=== PATIENT | male | born 1985 | race Two or more races ===

== ENCOUNTER 2021-11-14 16:39 | Emergency (ER) | payer OTHER ==
[~2021-11-14] VITALS: Ht 188 cm; Wt 225.0 kg
[2021-11-14 19:40] VITALS: BP 130/72
== END 2021-11-14 20:07 | disposition home or self-care (01) ==
LOC: ER 16:39
DX: M79.604 Pain in right leg (principal)
CPT/HCPCS: 93971

== ENCOUNTER 2022-11-14 11:07 | Emergency (ER) | payer OTHER ==
[~2022-11-14] VITALS: Ht 188 cm; Wt 80.0 kg
[2022-11-14 11:42] LABS: Basophils # (auto) 0 10 ^3/uL (0-0.2); Basophils % (auto) 0.3 % (0.0-2.0); Eosinophils # (auto) 0 10 ^3/uL (0-0.8); Eosinophils % (auto) 0.4 % (0.0-7.0); Hematocrit 46.9 % (41.0-53.0); Hemoglobin 15.9 g/dL (13.5-17.5); Mean Corpuscular Hemoglobin 31.7 pg (28.0-32.0); Mean Corpuscular Hgb Conc. 33.9 g/dL (32.0-36.0); Mean Corpuscular Volume 93.4 fL (80.0-100.0); Monocytes # (auto) 0.6 10 ^3/uL (0-1.3); Monocytes % (auto) 6.5 % (0.0-12.0); Neutrophils # (auto) 5.9 10 ^3/uL (1.6-8.6); Neutrophils % (auto) 61.8 % (37.0-80.0); Nucleated Red Blood Cells % 0.1 %; Red Blood Cells 5.02 10^6/uL (4.5-5.90); Red Cell Distribution Width 13.8 % (11.8-14.3); White Blood Cell 9.6 10^3/uL (4.4-10.8)
[2022-11-14 11:56] LABS: Albumin 4.2 g/dL (3.4-5.0); Calcium 8.8 mg/dL (8.5-10.1); Potassium 3.7 mmol/L (3.5-5.1)
[2022-11-14 12:00] LABS: BUN/Creatinine Ratio 13.8 (10.0-20.0); Bilirubin, Total 0.5 mg/dL (0.2-1.0); Total Protein 7.5 g/dL (6.4-8.2)
[2022-11-14] MEDS ORDERED: ASPirin 81 mg TAB PO ONE (12:00)
[2022-11-14] MEDS ORDERED: SODIUM CHLORIDE 0.9% 1,000 ML IVB ONE (12:00)
[2022-11-14] MEDS ORDERED: PANTOPRAZOLE 40 MG/10 ML VIAL INJ IV ONE (12:30)
[2022-11-14 13:16] LABS: Amphetamine Screen, Urine NEGATIVE (NEGATIVE); Barbiturate Scree,Urine NEGATIVE (NEGATIVE); Benzodiazephine Screen, Urine NEGATIVE (NEGATIVE); Cannabinoid Screen, Urine NEGATIVE (NEGATIVE); Cocaine Screen, Urine NEGATIVE (NEGATIVE); Opiate Scree,Urine NEGATIVE (NEGATIVE); Phencyclidine Screen, Urine NEGATIVE (NEGATIVE)
[2022-11-14] MEDS ORDERED: METR-344 PO (15:45)
[2022-11-14 16:08] VITALS: BP 144/80; PULSE 91; RESP 18; TEMP 97.9; O2SAT 99
== END 2022-11-14 16:12 | disposition home or self-care (01) ==
LOC: ER 11:07
DX: R00.2 Palpitations (principal)
CPT/HCPCS: 36415; 71045; 74176; 80053; 80307; 84484; 85025; 85379; 93005; 96361; 96374; 99285; C9113; J7030

== ENCOUNTER 2023-03-20 04:57 | Emergency (ER) | payer OTHER ==
[~2023-03-20] VITALS: Ht 188 cm; Wt 100.0 kg
[~2023-03-20 04:57] MED LIST: METR-344 PO
[2023-03-20 05:19] LABS: Basophils # (auto) 0.1 10 ^3/uL (0-0.2); Basophils % (auto) 0.5 % (0.0-2.0); Eosinophils # (auto) 0.2 10 ^3/uL (0-0.8); Eosinophils % (auto) 1.9 % (0.0-7.0); Hematocrit 46.9 % (41.0-53.0); Hemoglobin 15.9 g/dL (13.5-17.5); Lymphocytes # (auto) 4.2 10 ^3/uL (0.4-5.4); Lymphocytes % (auto) 38.2 % (10.0-50.0); Mean Corpuscular Hemoglobin 31.6 pg (28.0-32.0); Mean Corpuscular Hgb Conc. 33.8 g/dL (32.0-36.0); Mean Corpuscular Volume 93.4 fL (80.0-100.0); Monocytes # (auto) 1.1 10 ^3/uL (0-1.3); Monocytes % (auto) 9.9 % (0.0-12.0); Neutrophils # (auto) 5.4 10 ^3/uL (1.6-8.6); Neutrophils % (auto) 49.5 % (37.0-80.0); Nucleated Red Blood Cells % 0.1 %; Red Blood Cells 5.02 10^6/uL (4.5-5.90); Red Cell Distribution Width 13.1 % (11.8-14.3); White Blood Cell 10.9 10^3/uL (4.4-10.8)
[2023-03-20 05:33] LABS: Alanine Aminotransferase 28 U/L (7-40); Albumin 4.8 g/dL (3.2-4.8); Alkaline Phosphatase 81 U/L (46-116); Anion Gap 6 (5-15); Aspartate Aminotransferase 19 U/L (13-40); BUN/Creatinine Ratio 10.4 (10.0-20.0); Blood Urea Nitrogen 10 mg/dL (9-23); Calcium 9.5 mg/dL (8.7-10.4); Carbon Dioxide 27 mmol/L (20-30); Chloride 103 mmol/L (98-107); Glucose 113 mg/dL (74-106); Potassium 3.3 mmol/L (3.5-5.1); Sodium 136 mmol/L (136-145)
[2023-03-20 05:34] LABS: Total Protein 7.5 g/dL (5.7-8.2)
[2023-03-20 05:40] LABS: Partial Thromboplastin Time 34.6 SEC (24.5-34.5)
[2023-03-20 05:51] LABS: INR 1.04 (0.9-1.15); Prothrombin Time 10.9 sec (9.3-11.8)
[2023-03-20] MEDS ORDERED: ATEN-60 PO (07:28)
[2023-03-20] MEDS ORDERED: METO-281 PO (07:29)
[2023-03-20] MEDS ORDERED: POTASSIUM EFFERVESENT TAB 25 MEQ PO ONE (07:30)
[2023-03-20 07:46] VITALS: BP 120/67; PULSE 61; RESP 17; TEMP 98.4; O2SAT 99
== END 2023-03-20 09:44 | disposition home or self-care (01) ==
LOC: ER 04:57
DX: R07.89 Other chest pain (principal); R00.2 Palpitations; E87.6 Hypokalemia; K21.9 Gastro-esophageal reflux disease without esophagitis; Z79.899 Other long term (current) drug therapy
CPT/HCPCS: 36415; 71045; 80053; 83735; 83880; 84484; 85025; 85610; 85730; 93005